=== PATIENT | male | born 1945 | race American Indian/Alaskan Native ===

== ENCOUNTER 2018-05-07 19:04 | Observation (INO) | payer OTHER ==
--- NOTE | 2018-05-07 19:45 | EDM.PDOC ---
ED HPI GENERAL MEDICAL PROBLEM - General Chief Complaint: General Stated Complaint: HIGH POTASSIUM? SENT FROM [facility] Time Seen by Provider: 05/07/18 19:35 Source of Information: Reports: Patient, Old Records, Provider History Limitations: Reports: No Limitations - History of Present Illness INITIAL COMMENTS - FREE TEXT/NARRATIVE: 72 yo male here on request from his provider to be evaluated for an abnormal potassium, 6.2, on a routine lab draw earlier today. He is asymptomatic and does not recall having an issue with this in the past. 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 Goes to the [facility]. Onset: Today Onset Date: 05/07/18 Duration: Hour(s):, Other (uncertain) Location: Reports: Generalized Quality: Reports: Other (no pain) Severity: Moderate Improves with: Reports: None Worsens with: Reports: None Context: Reports: Other (See HPI) Associated Symptoms: Reports: No Other Symptoms Treatments COMBINER: Reports: Other (see below) Other Treatments COMBINER: high potassium - Related Data Allergies Allergy/AdvReac Type Severity Reaction Status Date / Time No Known Allergies Allergy Verified 05/07/18 19:37 Home Meds: Home Meds Aspirin [Adult Low Dose Aspirin EC] 81 mg PO DAILY 03/17/13 [History] Insulin Detemir [Levemir] 25 unit SUBCUT BEDTIME 03/17/13 [History] Multivitamin [Multi-Vitamin Daily] 1 each PO DAILY 03/17/13 [History] glipiZIDE [Glucotrol XL] 10 mg PO BID 03/17/13 [History] Ascorbic Acid [Acerola C] 250 mg PO DAILY 05/07/18 [History] Calcitriol 0.25 mcg PO DAILY 05/07/18 [History] Cholecalciferol (Vitamin D3) [Vitamin D3] 2,000 unit PO DAILY 05/07/18 [History] Ferrous Gluconate 972 mg PO DAILY 05/07/18 [History] Lisinopril 5 mg PO BID 05/07/18 [History] Magnesium Oxide [Magnesium] 400 mg PO BID 05/07/18 [History] amLODIPine Besylate [Amlodipine Besylate] 10 mg PO DAILY 05/07/18 [History] hydroCHLOROthiazide [Hydrochlorothiazide] 25 mg PO DAILY 05/07/18 [History] ED ROS GENERAL - Review of Systems Review Of Systems: See Below Constitutional: Reports: No Symptoms HEENT: Reports: No Symptoms Respiratory: Reports: No Symptoms Cardiovascular: Reports: No Symptoms Endocrine: Reports: No Symptoms GI/Abdominal: Reports: No Symptoms : Reports: No Symptoms Musculoskeletal: Reports: No Symptoms Skin: Reports: No Symptoms Neurological: Reports: No Symptoms ED EXAM, GENERAL - Physical Exam Exam: See Below Exam Limited By: No Limitations General Appearance: Alert, WD/WN, No Apparent Distress Eye Exam: Bilateral Eye: Normal Inspection, PERRL Ears: Normal External Exam, Normal Canal, Hearing Grossly Normal Ear Exam: Bilateral Ear: Auricle Normal, Canal Normal Nose: Normal Inspection, No Blood Throat/Mouth: Normal Inspection, Normal Lips, Normal Oropharynx, Normal Voice, No Airway Compromise Head: Atraumatic, Normocephalic Neck: Normal Inspection Respiratory/Chest: No Respiratory Distress, Lungs Clear, Normal Breath Sounds, No Accessory Muscle Use Cardiovascular: Regular Rate, Rhythm, No Edema GI/Abdominal: Normal Bowel Sounds, Soft, Non-Tender, No Distention Back Exam: Normal Inspection. No: CVA Tenderness (R), CVA Tenderness (L) Extremities: Normal Inspection, Normal Range of Motion, Non-Tender, No Pedal Edema Neurological: Alert, Oriented, CN II-XII Intact, Normal Cognition, No Motor/ Sensory Deficits Psychiatric: Normal Affect, Normal Mood Skin Exam: Warm, Dry, Intact, Normal Color, No Rash EKG INTERPRETATION EKG Date: 05/07/18 Time: 19:40 Rhythm: NSR Rate (Beats/Min): 70 [place]: Normal P-Wave: Present QRS: Normal ST-T: Normal QT: Normal Comparison: NA - No Prior EKG EKG Interpretation Comments: SD interval prolonged. Course - Vital Signs Text/Narrative:: Hospitalist Ruthann mendoza, at 2203h. Last Recorded V/S: Last Vital Signs Temp 36.4 C 05/07/18 19:51 Pulse 63 05/07/18 20:05 Resp 12 05/07/18 20:05 BP 155/69 H 05/07/18 20:05 Pulse Ox 95 05/07/18 20:05 - Orders/Labs/Meds Orders: Active Orders 24 hr Category Date Time Status EKG Documentation Completion [RC] ASDIRECTED Care 05/07/18 19:39 Active EKG 12 Lead [EK] Routine Ther 05/07/18 19:39 Ordered Labs: Laboratory Tests 05/07/18 05/07/18 Range/Units 19:10 21:45 Potassium 6.1 H* 5.9 H (3.6-5.2) mmol/L Meds: Medications Discontinued Medications Generic Name Dose Route Start Last Admin Trade Name Braxton PRN Reason Stop Dose Admin Sodium Chloride 500 mls @ 1,000 mls/hr 05/07/18 19:52 05/07/18 20:49 Normal Saline IV 05/07/18 20:21 1,000 mls/hr .BOLUS ONE Administration Sodium Chloride 500 mls @ 1,000 mls/hr 05/07/18 20:45 05/07/18 21:18 Normal Saline IV 05/07/18 21:14 1,000 mls/hr .BOLUS ONE Administration Sodium Polystyrene Sulfonate 30 gm 05/07/18 19:52 05/07/18 20:51 Kayexalate PO 05/07/18 19:53 30 gm ONETIME ONE Administration Departure - Departure Time of Disposition: 22:20 Disposition: Refer to Observation Condition: Fair Clinical Impression: Hyperkalemia, Chronic renal failure, stage 4 (severe) - Discharge Information *PRESCRIPTION DRUG MONITORING PROGRAM REVIEWED*: No *COPY OF PRESCRIPTION DRUG MONITORING REPORT IN PATIENT PAULINE: No Referrals: PCP,None [Primary Care Provider] - Forms: ED Department Discharge - My Orders Last 24 Hours: My Active Orders 05/07/18 19:39 EKG Documentation Completion [RC] ASDIRECTED EKG 12 Lead [EK] Routine - Assessment/Plan Last 24 Hours: My Active Orders 05/07/18 19:39 EKG Documentation Completion [RC] ASDIRECTED EKG 12 Lead [EK] Routine
[2018-05-07] MEDS ORDERED: Sodium Chloride 0.9% 500 ML IV ONE ×2 (19:52→20:45)
[2018-05-07] MEDS ORDERED: Sodium Polystyrene Sulfonate 15 GM/60 ML Susp 60 ML Bot PO ONE (19:52)
--- NOTE | 2018-05-07 23:36 | PCM.HP ---
H&P History of Present Illness - General Date of Service: 05/07/18 Admit Problem/Dx: Admission Diagnosis/Problem Admission Diagnosis/Problem Hyperkalemia Source of Information: Patient History Limitations: Reports: No Limitations - History of Present Illness Initial Comments - Free Text/Narative: 72 yo male here on request from his provider to be evaluated for an abnormal potassium, 6.2, on a routine lab draw earlier today. He is asymptomatic and does not recall having an issue with this in the past. 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 Goes to the [facility]. Onset: Today Onset of Symptoms: Reports: Today (seen in clinic today for routine primary care visit, labs noted to have high potassium, advise to come to ER for further evaluation) Location: Reports: Generalized Improves with: Reports: None Worsens with: Reports: None Associated Symptoms: Reports: No Other Symptoms (deneis chest pain, shortness of breath, fever, chills, nausea, vomiting or diarrhea) - Related Data Allergies/Adverse Reactions: Allergies Allergy/AdvReac Type Severity Reaction Status Date / Time No Known Allergies Allergy Verified 05/07/18 19:37 Home Medications: Home Meds Aspirin [Adult Low Dose Aspirin EC] 81 mg PO DAILY 03/17/13 [History] Insulin Detemir [Levemir] 25 unit SUBCUT BEDTIME 03/17/13 [History] Multivitamin [Multi-Vitamin Daily] 1 each PO DAILY 03/17/13 [History] glipiZIDE [Glucotrol XL] 10 mg PO BID 03/17/13 [History] Ascorbic Acid [Acerola C] 250 mg PO DAILY 05/07/18 [History] Calcitriol 0.25 mcg PO DAILY 05/07/18 [History] Cholecalciferol (Vitamin D3) [Vitamin D3] 2,000 unit PO DAILY 05/07/18 [History] Ferrous Gluconate 972 mg PO DAILY 05/07/18 [History] Lisinopril 5 mg PO BID 05/07/18 [History] Magnesium Oxide [Magnesium] 400 mg PO BID 05/07/18 [History] amLODIPine Besylate [Amlodipine Besylate] 10 mg PO DAILY 05/07/18 [History] hydroCHLOROthiazide [Hydrochlorothiazide] 25 mg PO DAILY 05/07/18 [History] Past Medical History HEENT History: Reports: Other (See Below) Other HEENT History: retinal atrophic hole. postertior vitreous detachment Cardiovascular History: Reports: High Cholesterol, Hypertension Genitourinary History: Reports: Other (See Below) Other Genitourinary History: Chronic kidney disease stage 4 due to type 2 DM. erectile dysfunction Musculoskeletal History: Reports: Osteoarthritis, Other (See Below) Other Musculoskeletal History: lumbar radiculopathy Neurological History: Reports: Head Trauma Endocrine/Metabolic History: Reports: Diabetes, Type II Dermatologic History: Reports: Other (See Below) Other Dermatologic History: diabetic foot ulcer - Infectious Disease History Infectious Disease History: Reports: Chicken Pox Social & Family History - Family History Family Medical History: Unobtainable - Tobacco Use Smoking Status *Q: Never Smoker Second Hand Smoke Exposure: No - Caffeine Use Caffeine Use: Reports: Coffee - Recreational Drug Use Recreational Drug Use: No - Living Situation & Occupation Occupation: Retired (lives in [place], [place] with Melissa, retired 6 years ago from [employer].) H&P Review of Systems - Review of Systems: Review Of Systems: See Below General: Reports: No Symptoms, Other (reports has diabetes but didnt take care of it, does not follow any special diet. reports no concerns. feeling his usually self.) HEENT: Reports: No Symptoms Pulmonary: Reports: No Symptoms Cardiovascular: Reports: No Symptoms Gastrointestinal: Reports: No Symptoms Genitourinary: Reports: No Symptoms Musculoskeletal: Reports: No Symptoms Skin: Reports: No Symptoms Psychiatric: Reports: No Symptoms Neurological: Reports: No Symptoms Hematologic/Lymphatic: Reports: No Symptoms Immunologic: Reports: No Symptoms Exam - Exam Exam: See Below - Vital Signs Vital Signs: Last Vital Signs Temp 36.4 C 05/07/18 23:05 Pulse 66 05/07/18 23:05 Resp 12 05/07/18 23:05 BP 161/75 H 05/07/18 23:05 Pulse Ox 95 05/07/18 23:05 Weight: 86.8 kg - Exam General: Alert, Oriented, 4 HEENT: PERRLA, Hearing Intact, Mucosa Moist & [place], Nares Patent, Normal Nasal Septum, Posterior Pharynx Clear, Conjunctiva Clear, EOMI, EACs Clear, TMs Clear Neck: Supple, Trachea Midline, 2 Lungs: Clear to Auscultation, Normal Respiratory Effort Cardiovascular: Regular Rate, Regular Rhythm GI/Abdominal Exam: Normal Bowel Sounds, Soft, Non-Tender, No Organomegaly, No Distention, No Abnormal Bruit, No Mass, Pelvis Stable (Male) Exam: Deferred Rectal (Males) Exam: Deferred Back Exam: Normal Inspection, Full Range of Motion Extremities: Normal Inspection, Normal Range of Motion, Non-Tender, No Pedal Edema, Normal Capillary Refill Skin: Warm, Dry, Intact Neurological: Reflexes Equal Bilateral, Strength Equal Bilateral, Normal Speech , Normal Tone Neuro Extensive - Mental Status: Alert, Oriented x3, Normal Mood/Affect, Normal Cognition Neuro Extensive - Motor, Sensory, Reflexes: CN II-XII Intact, Normal Gait, Normal Reflexes Psychiatric: Alert, Normal Affect, Normal Mood - Patient Data Lab Results Last 24 hrs: Laboratory Results - last 24 hr 05/07/18 05/07/18 05/07/18 Range/Units 19:10 21:45 22:49 WBC 6.4 (4.5-11.0) K/uL RBC 2.95 L (4.30-5.90) M/uL Hgb 8.0 L (12.0-15.0) g/dL Hct 25.8 L (40.0-54.0) % MCV 88 (80-98) fL MCH 27 (27-31) pg MCHC 31 L (32-36) % Plt Count 330 (150-400) K/uL Neut % (Auto) 59 (36-66) % Lymph % (Auto) 24 (24-44) % Leon % (Auto) 7 H (2-6) % Eos % (Auto) 9 H (2-4) % Baso % (Auto) 1 (0-1) % Sodium (140-148) mmol/L Potassium 6.1 H* 5.9 H (3.6-5.2) mmol/L Chloride (100-108) mmol/L Carbon Dioxide (21-32) mmol/L Anion Gap (5.0-14.0) mmol/L BUN (7-18) mg/dL Creatinine (0.8-1.3) mg/dL Est Cr Clr Drug Dosing mL/min Estimated GFR (MDRD) (>60) Glucose (74-106) mg/dL Calcium (8.5-10.1) mg/dL Magnesium (1.8-2.4) mg/dL Total Bilirubin (0.2-1.0) mg/dL AST (15-37) U/L ALT (12-78) U/L Alkaline Phosphatase (46-116) U/L Total Protein (6.4-8.2) g/dL Albumin (3.4-5.0) g/dL Globulin (2.3-3.5) g/dL Albumin/Globulin Ratio (1.2-2.2) Amylase (25-115) U/L Lipase (73-393) U/L Urine Color Urine Appearance Urine pH (4.5-8.0) Ur Specific [place] (1.008-1.030) Urine Protein (NEGATIVE) mg/dL Urine Glucose (UA) (NEGATIVE) mg/dL Urine Ketones (NEGATIVE) mg/dL Urine Occult Blood (NEGATIVE) Urine Nitrite (NEGAITVE) Urine Bilirubin (NEGATIVE) Urine Urobilinogen (NORMAL) mg/dL Ur Leukocyte Esterase (NEGATIVE) Urine RBC (0-5) Urine WBC (0-5) Ur Epithelial Cells Amorphous Sediment Urine Bacteria Urine Mucus 05/07/18 05/07/18 05/07/18 Range/Units 22:49 22:49 22:49 WBC (4.5-11.0) K/uL RBC (4.30-5.90) M/uL Hgb (12.0-15.0) g/dL Hct (40.0-54.0) % MCV (80-98) fL MCH (27-31) pg MCHC (32-36) % Plt Count (150-400) K/uL Neut % (Auto) (36-66) % Lymph % (Auto) (24-44) % Leon % (Auto) (2-6) % Eos % (Auto) (2-4) % Baso % (Auto) (0-1) % Sodium 143 (140-148) mmol/L Potassium 5.9 H (3.6-5.2) mmol/L Chloride 113 H (100-108) mmol/L Carbon Dioxide 21 (21-32) mmol/L Anion Gap 14.9 H (5.0-14.0) mmol/L BUN 49 H (7-18) mg/dL Creatinine 3.1 H (0.8-1.3) mg/dL Est Cr Clr Drug Dosing 25.04 mL/min Estimated GFR (MDRD) 20 L (>60) Glucose 155 H (74-106) mg/dL Calcium 7.8 L (8.5-10.1) mg/dL Magnesium (1.8-2.4) mg/dL Total Bilirubin 0.1 L (0.2-1.0) mg/dL AST 22 (15-37) U/L ALT 27 (12-78) U/L Alkaline Phosphatase 94 (46-116) U/L Total Protein 6.2 L (6.4-8.2) g/dL Albumin 2.3 L (3.4-5.0) g/dL Globulin 3.9 H (2.3-3.5) g/dL Albumin/Globulin Ratio 0.6 L (1.2-2.2) Amylase 62 (25-115) U/L Lipase 164 (73-393) U/L Urine Color Yellow Urine Appearance Slightly cloudy Urine pH 6.0 (4.5-8.0) Ur Specific [place] 1.015 (1.008-1.030) Urine Protein 500 H (NEGATIVE) mg/dL Urine Glucose (UA) 250 H (NEGATIVE) mg/dL Urine Ketones Negative (NEGATIVE) mg/dL Urine Occult Blood Moderate (NEGATIVE) Urine Nitrite Negative (NEGAITVE) Urine Bilirubin Negative (NEGATIVE) Urine Urobilinogen Normal (NORMAL) mg/dL Ur Leukocyte Esterase Negative (NEGATIVE) Urine RBC 5-10 H (0-5) Urine WBC Not seen (0-5) Ur Epithelial Cells Few Amorphous Sediment Not seen Urine Bacteria Not seen Urine Mucus Not seen 05/07/18 Range/Units 22:50 WBC (4.5-11.0) K/uL RBC (4.30-5.90) M/uL Hgb (12.0-15.0) g/dL Hct (40.0-54.0) % MCV (80-98) fL MCH (27-31) pg MCHC (32-36) % Plt Count (150-400) K/uL Neut % (Auto) (36-66) % Lymph % (Auto) (24-44) % Leon % (Auto) (2-6) % Eos % (Auto) (2-4) % Baso % (Auto) (0-1) % Sodium (140-148) mmol/L Potassium (3.6-5.2) mmol/L Chloride (100-108) mmol/L Carbon Dioxide (21-32) mmol/L Anion Gap (5.0-14.0) mmol/L BUN (7-18) mg/dL Creatinine (0.8-1.3) mg/dL Est Cr Clr Drug Dosing mL/min Estimated GFR (MDRD) (>60) Glucose (74-106) mg/dL Calcium (8.5-10.1) mg/dL Magnesium 1.5 L (1.8-2.4) mg/dL Total Bilirubin (0.2-1.0) mg/dL AST (15-37) U/L ALT (12-78) U/L Alkaline Phosphatase (46-116) U/L Total Protein (6.4-8.2) g/dL Albumin (3.4-5.0) g/dL Globulin (2.3-3.5) g/dL Albumin/Globulin Ratio (1.2-2.2) Amylase (25-115) U/L Lipase (73-393) U/L Urine Color Urine Appearance Urine pH (4.5-8.0) Ur Specific [place] (1.008-1.030) Urine Protein (NEGATIVE) mg/dL Urine Glucose (UA) (NEGATIVE) mg/dL Urine Ketones (NEGATIVE) mg/dL Urine Occult Blood (NEGATIVE) Urine Nitrite (NEGAITVE) Urine Bilirubin (NEGATIVE) Urine Urobilinogen (NORMAL) mg/dL Ur Leukocyte Esterase (NEGATIVE) Urine RBC (0-5) Urine WBC (0-5) Ur Epithelial Cells Amorphous Sediment Urine Bacteria Urine Mucus Result Diagrams: 05/08/18 05:00 05/08/18 05:00 - Problem List (1) Hyperkalemia SNOMED Code(s): 48461590 ICD Code: E87.5 - HYPERKALEMIA Status: Acute Priority: High Current Visit: Yes (2) Chronic renal failure, stage 4 (severe) SNOMED Code(s): 31099485, 472005135 ICD Code: N18.4 - CHRONIC KIDNEY DISEASE, STAGE 4 (SEVERE) Status: Acute Priority: High Current Visit: Yes (3) Hypertension SNOMED Code(s): 46884033 ICD Code: I10 - ESSENTIAL (PRIMARY) HYPERTENSION Status: Acute Priority: High Current Visit: Yes Qualifiers: Hypertension type: secondary to other renal disorders Qualified Code(s): I15.1 - Hypertension secondary to other renal disorders; N28.89 - Other specified disorders of kidney and ureter (4) Diabetes type 2, uncontrolled SNOMED Code(s): 05294922, 620059239 ICD Code: E11.65 - TYPE 2 DIABETES MELLITUS WITH HYPERGLYCEMIA Status: Chronic Priority: High Current Visit: No Qualifiers: Coma presence: without coma Problem List Initiated/Reviewed/Updated: Yes Orders Last 24hrs: Active Orders 24 hr Category Date Time Status Patient Status Manage Transfer [TRANSFER] Routine ADT 05/07/18 23:04 Ordered Cardiac Monitoring [RC] .As Directed Care 05/07/18 22:49 Active EKG Documentation Completion [RC] ASDIRECTED Care 05/07/18 19:39 Active Resuscitation Status Routine Resus Stat 05/07/18 23:10 Ordered EKG 12 Lead [EK] Routine Ther 05/07/18 19:39 Ordered Assessment/Plan Comment:: ASSESSMENT / PLAN: chief complaint: high potassium 72 yo male here on request from his provider to be evaluated for an abnormal potassium, 6.2, on a routine lab draw earlier today. He is asymptomatic and does not recall having an issue with this in the past. 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 Goes to the [facility]. plan: admit to OBS for further care and treatment. Hyperkalemia -telemetry -give additional Kayexalate 30 gm. -IV fluids NS at 125ml/hr -repeat labs in am CBC,BMP Hypertension -continue blood pressure medication Chronic renal failure, baseline creatinine 3.3, chronic anemia -I and O -Iron infusion due this week -monitor for any sign or symptom of excess fluid. -advise to notify staff of any shortness of breath -labs CBC,BMP in am Diabetes Type 2, uncontrolled -Glucotrol XL 10 mg po bid -Insulin Levemir 25 units at bedtime -Insulin low dose sliding scale coverage -monitor blood glucose 4 times a day Maintenance issues -Orders home meds: on hold -Nutrition: consistent carb diet -Woodruff catheter not indicated at this time -DVT:Xarelto -GI Prophalaxis; Protonix 40mg daily CODE STATUS: Full Admission status: Admit to Observation -I expect this patient to stay less than 24 hours, not to exceed 96 hours for evaluation and management of this problem. Disposition: home with Primary care provider: Cyndi Nathan [facility] Hospitalist: Dr. Nathan
[2018-05-08] MEDS ORDERED: Lisinopril 5 MG Tab PO SCH (00:03)
[2018-05-08] MEDS ORDERED: Insulin Glargine,Human Rec. Analog 100 Units/ML 3 ML Pen SUBCUT SCH ×2 (00:03)
[2018-05-08] MEDS ORDERED: Docusate Sodium 100 MG Cap PO PRN (00:03)
[2018-05-08] MEDS ORDERED: Morphine 2 MG/ML Syringe IVPUSH PRN (00:03)
[2018-05-08] MEDS ORDERED: oxyCODONE 5 MG Tab PO PRN (00:03)
[2018-05-08] MEDS ORDERED: LORazepam 2 MG/ML SDV IV PRN (00:03)
[2018-05-08] MEDS ORDERED: Acetaminophen 325 MG Tab PO PRN (00:03)
[2018-05-08] MEDS ORDERED: Ondansetron 4 MG Tab.DIS PO PRN (00:03)
[2018-05-08] MEDS ORDERED: Sodium Polystyrene Sulfonate 15 GM/60 ML Susp 60 ML Bot PO ONE ×3 (00:03→14:00)
[2018-05-08] MEDS ORDERED: Albuterol 0.083% 2.5 MG/3 ML Neb Soln NEB PRN (00:03)
[2018-05-08] MEDS: Sodium Chloride 0.9% 1,000 ML IV SCH ×3 (01:13→12:42)
[2018-05-08] MEDS: Insulin Lispro 100 Unit/ML 3 ML KwikPen SUBCUT SCH ×2 (08:58→14:18)
[2018-05-08] MEDS ORDERED: CALCITRIOL 0.25 MCG PO SCH (09:00)
[2018-05-08] MEDS ORDERED: FERROUS GLUCONATE PO SCH (09:00)
[2018-05-08] MEDS ORDERED: Magnesium Oxide 400 MG Tab PO SCH (09:00)
[2018-05-08] MEDS ORDERED: amLODIPine 10 MG Tab PO SCH (09:00)
[2018-05-08] MEDS ORDERED: glipiZIDE 5 MG Tab.ER PO SCH (09:00)
[2018-05-08] MEDS ORDERED: Hydrochlorothiazide 25 MG Tab PO SCH (09:00)
[2018-05-08] MEDS ORDERED: Sodium Chloride 0.9% 1,000 ML IV SCH (12:45)
--- NOTE | 2018-05-08 14:44 | PCM.DCSUM1 ---
Discharge Summary - Hospital Course Brief History: 72-year-old male with history of adult-onset diabetes mellitus, stage IV kidney disease and secondary hypertension who was sent to the emergency room for management of hyperkalemia noted on routine labs. He was admitted for management of hyperkalemia. Diagnosis: Stroke: No - Discharge Data Discharge Date: 05/08/18 Discharge Disposition: Home, Self-Care 01 Condition: Fair - Discharge Diagnosis/Problem(s) (1) Hyperkalemia SNOMED Code(s): 63447478 ICD Code: E87.5 - HYPERKALEMIA Status: Acute Priority: High Current Visit: Yes (2) Chronic renal failure, stage 4 (severe) SNOMED Code(s): 45545981, 128580579 ICD Code: N18.4 - CHRONIC KIDNEY DISEASE, STAGE 4 (SEVERE) Status: Chronic Priority: High Current Visit: Yes (3) Hypertension SNOMED Code(s): 06462521 ICD Code: I10 - ESSENTIAL (PRIMARY) HYPERTENSION Status: Chronic Priority : High Current Visit: Yes Qualifiers: Hypertension type: secondary to other renal disorders Qualified Code(s): I15.1 - Hypertension secondary to other renal disorders; N28.89 - Other specified disorders of kidney and ureter (4) Diabetes type 2, uncontrolled SNOMED Code(s): 43866374, 470832454 ICD Code: E11.65 - TYPE 2 DIABETES MELLITUS WITH HYPERGLYCEMIA Status: Chronic Priority: High Current Visit: No Qualifiers: Coma presence: without coma - Patient Summary/Data Hospital Course: Ayaan presented to the emergency room at the urging of his primary care provider after routine lab work revealed a potassium of 6.2. Recheck of the potassium in the emergency room revealed a level of 6.1. He was given 30 g of Kayexalate as well as IV fluids and admitted to the hospital for cardiac monitoring and repeat laboratory testing. 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 His potassium decreased to 5.9 and then to 5.7 the morning after admission. He was feeling well. His chronic kidney disease remained stable with a GFR of around 24. I did recheck his potassium around noon the morning after admission. Unfortunately this level had risen up to 6.4. He received 45 g of Kayexalate as well as IV fluid bolus of 1 L. The patient was not interested in staying in the hospital for additional cardiac monitoring or follow-up laboratory testing. He reported that he felt well and was interested in going home. I encouraged him to stay because of the rise in his potassium despite treatments provided in the emergency room. He was adamant that he go home but he was willing to come back tomorrow for repeat laboratory testing. I suspect that his hyperkalemia was related to the use of lisinopril in the setting of chronic kidney disease. I recommended that he discontinue his lisinopril. He would benefit from early follow-up and this has been scheduled. He is also interested in home care to help monitor medications and vital signs. Also noted during the hospital stay was a low blood sugar of 59 the morning after admission. He is on twice daily glipizide with the long-acting formulation. With his hypoglycemia and chronic kidney disease I encouraged him to decrease this dosing to just once daily. He has follow-up scheduled for early next week and will be returning tomorrow for additional laboratory testing. - Patient Instructions Diet: Diabetic Diet Activity: As Tolerated Driving: May Drive Today Showering/Bathing: May Shower Notify Provider of: Fever, Increased Pain, Nausea and/or Vomiting Other/Special Instructions: 1. You were in the hospital stay for management of hyperkalemia (high potassium). I suspect the high potassium level was a result of your blood pressure medication lisinopril. I would recommend that you stop taking this medication with the hopes it will lower your potassium level to a safe range. Please return to the hospital and register at the emergency room desk for lab only tomorrow morning. I will talk to you about the results as soon as they are available. 2. During the hospital stay we noticed an episode of hypoglycemia (low blood sugar). I would strongly recommend that you decrease your dose of glipizide from twice daily down to just once daily in the morning. 3. Follow up with your provider [facility] as scheduled on May [facility]. 4. I have placed a referral to home health care to help ease her transition home. They will provide nursing services to help monitor medications and recheck your potassium level early next week (BMP on Friday or Friday). 5. Seek medical attention if you develop fever greater than 101, you have chest pain/tightness in your chest or if you have significant dizziness/ lightheadedness. - Discharge Plan *PRESCRIPTION DRUG MONITORING PROGRAM REVIEWED*: No *COPY OF PRESCRIPTION DRUG MONITORING REPORT IN PATIENT PAULINE: No Prescriptions/Med Rec: glipiZIDE [Glucotrol XL] 10 mg PO DAILY #30 tab.er Home Medications: Home Meds Aspirin [Adult Low Dose Aspirin EC] 81 mg PO DAILY 03/17/13 [History] Insulin Detemir [Levemir] 25 unit SUBCUT BEDTIME 03/17/13 [History] Multivitamin [Multi-Vitamin Daily] 1 each PO DAILY 03/17/13 [History] Ascorbic Acid [Acerola C] 250 mg PO DAILY 05/07/18 [History] Calcitriol 0.25 mcg PO DAILY 05/07/18 [History] Cholecalciferol (Vitamin D3) [Vitamin D3] 2,000 unit PO DAILY 05/07/18 [History] Ferrous Gluconate 972 mg PO DAILY 05/07/18 [History] Magnesium Oxide [Magnesium] 400 mg PO BID 05/07/18 [History] amLODIPine Besylate [Amlodipine Besylate] 10 mg PO DAILY 05/07/18 [History] hydroCHLOROthiazide [Hydrochlorothiazide] 25 mg PO DAILY 05/07/18 [History] glipiZIDE [Glucotrol XL] 10 mg PO DAILY #30 tab.er 05/08/18 [Rx] Oxygen Therapy Mode: Room Air Patient Handouts: Hyperkalemia, [id number] Referrals: Yeni Brandt MD [Ordering Only Provider] - 05/26/18 2:00 pm (Please arrive 15 minutes early to register for your appointment.) - Discharge Summary/Plan Comment DC Time >30 min.: Yes (45 - setting up home care and follow-up laboratory testing) - Patient Data Vitals - Most Recent: Last Vital Signs Temp 36.5 C 05/08/18 12:36 Pulse 74 05/08/18 12:36 Resp 18 05/08/18 12:36 BP 162/59 H 05/08/18 12:36 Pulse Ox 99 05/08/18 12:36 Weight - Most Recent: 86.8 kg I&O - Last 24 hours: Intake & Output 05/07/18 05/08/18 05/08/18 22:59 06:59 14:59 Intake Total 796 Output Total 300 325 Balance -300 471 Lab Results - Last 24 hrs: Laboratory Results - last 24 hr 05/07/18 05/07/18 05/07/18 Range/Units 19:10 21:45 22:49 WBC 6.4 (4.5-11.0) K/uL RBC 2.95 L (4.30-5.90) M/uL Hgb 8.0 L (12.0-15.0) g/dL Hct 25.8 L (40.0-54.0) % MCV 88 (80-98) fL MCH 27 (27-31) pg MCHC 31 L (32-36) % Plt Count 330 (150-400) K/uL Neut % (Auto) 59 (36-66) % Lymph % (Auto) 24 (24-44) % [place] % (Auto) 7 H (2-6) % Eos % (Auto) 9 H (2-4) % Baso % (Auto) 1 (0-1) % Sodium (140-148) mmol/L Potassium 6.1 H* 5.9 H (3.6-5.2) mmol/L Chloride (100-108) mmol/L Carbon Dioxide (21-32) mmol/L Anion Gap (5.0-14.0) mmol/L BUN (7-18) mg/dL Creatinine (0.8-1.3) mg/dL Est Cr Clr Drug Dosing mL/min Estimated GFR (MDRD) (>60) Glucose (74-106) mg/dL Calcium (8.5-10.1) mg/dL Magnesium (1.8-2.4) mg/dL Total Bilirubin (0.2-1.0) mg/dL AST (15-37) U/L ALT (12-78) U/L Alkaline Phosphatase (46-116) U/L Total Protein (6.4-8.2) g/dL Albumin (3.4-5.0) g/dL Globulin (2.3-3.5) g/dL Albumin/Globulin Ratio (1.2-2.2) Amylase (25-115) U/L Lipase (73-393) U/L Urine Color Urine Appearance Urine pH (4.5-8.0) Ur Specific [place] (1.008-1.030) Urine Protein (NEGATIVE) mg/dL Urine Glucose (UA) (NEGATIVE) mg/dL Urine Ketones (NEGATIVE) mg/dL Urine Occult Blood (NEGATIVE) Urine Nitrite (NEGAITVE) Urine Bilirubin (NEGATIVE) Urine Urobilinogen (NORMAL) mg/dL Ur Leukocyte Esterase (NEGATIVE) Urine RBC (0-5) Urine WBC (0-5) Ur Epithelial Cells Amorphous Sediment Urine Bacteria Urine Mucus Blood Type Gel Antibody Screen Crossmatch 05/07/18 05/07/18 05/07/18 Range/Units 22:49 22:49 22:49 WBC (4.5-11.0) K/uL RBC (4.30-5.90) M/uL Hgb (12.0-15.0) g/dL Hct (40.0-54.0) % MCV (80-98) fL MCH (27-31) pg MCHC (32-36) % Plt Count (150-400) K/uL Neut % (Auto) (36-66) % Lymph % (Auto) (24-44) % [place] % (Auto) (2-6) % Eos % (Auto) (2-4) % Baso % (Auto) (0-1) % Sodium 143 (140-148) mmol/L Potassium 5.9 H (3.6-5.2) mmol/L Chloride 113 H (100-108) mmol/L Carbon Dioxide 21 (21-32) mmol/L Anion Gap 14.9 H (5.0-14.0) mmol/L BUN 49 H (7-18) mg/dL Creatinine 3.1 H (0.8-1.3) mg/dL Est Cr Clr Drug Dosing 25.04 mL/min Estimated GFR (MDRD) 20 L (>60) Glucose 155 H (74-106) mg/dL Calcium 7.8 L (8.5-10.1) mg/dL Magnesium (1.8-2.4) mg/dL Total Bilirubin 0.1 L (0.2-1.0) mg/dL AST 22 (15-37) U/L ALT 27 (12-78) U/L Alkaline Phosphatase 94 (46-116) U/L Total Protein 6.2 L (6.4-8.2) g/dL Albumin 2.3 L (3.4-5.0) g/dL Globulin 3.9 H (2.3-3.5) g/dL Albumin/Globulin Ratio 0.6 L (1.2-2.2) Amylase 62 (25-115) U/L Lipase 164 (73-393) U/L Urine Color Yellow Urine Appearance Slightly cloudy Urine pH 6.0 (4.5-8.0) Ur Specific [place] 1.015 (1.008-1.030) Urine Protein 500 H (NEGATIVE) mg/dL Urine Glucose (UA) 250 H (NEGATIVE) mg/dL Urine Ketones Negative (NEGATIVE) mg/dL Urine Occult Blood Moderate (NEGATIVE) Urine Nitrite Negative (NEGAITVE) Urine Bilirubin Negative (NEGATIVE) Urine Urobilinogen Normal (NORMAL) mg/dL Ur Leukocyte Esterase Negative (NEGATIVE) Urine RBC 5-10 H (0-5) Urine WBC Not seen (0-5) Ur Epithelial Cells Few Amorphous Sediment Not seen Urine Bacteria Not seen Urine Mucus Not seen Blood Type Gel Antibody Screen Crossmatch 05/07/18 05/08/18 05/08/18 Range/Units 22:50 05:00 05:00 WBC 5.3 (4.5-11.0) K/uL RBC 2.64 L (4.30-5.90) M/uL Hgb 7.1 L (12.0-15.0) g/dL Hct 23.3 L (40.0-54.0) % MCV 88 (80-98) fL MCH 27 (27-31) pg MCHC 31 L (32-36) % Plt Count 283 (150-400) K/uL Neut % (Auto) 53 (36-66) % Lymph % (Auto) 27 (24-44) % [place] % (Auto) 8 H (2-6) % Eos % (Auto) 12 H (2-4) % Baso % (Auto) 1 (0-1) % Sodium 144 (140-148) mmol/L Potassium 5.7 H (3.6-5.2) mmol/L Chloride 115 H (100-108) mmol/L Carbon Dioxide 21 (21-32) mmol/L Anion Gap 13.7 (5.0-14.0) mmol/L BUN 48 H (7-18) mg/dL Creatinine 3.0 H (0.8-1.3) mg/dL Est Cr Clr Drug Dosing 25.88 mL/min Estimated GFR (MDRD) 21 L (>60) Glucose 102 (74-106) mg/dL Calcium 8.2 L (8.5-10.1) mg/dL Magnesium 1.5 L (1.8-2.4) mg/dL Total Bilirubin (0.2-1.0) mg/dL AST (15-37) U/L ALT (12-78) U/L Alkaline Phosphatase (46-116) U/L Total Protein (6.4-8.2) g/dL Albumin (3.4-5.0) g/dL Globulin (2.3-3.5) g/dL Albumin/Globulin Ratio (1.2-2.2) Amylase (25-115) U/L Lipase (73-393) U/L Urine Color Urine Appearance Urine pH (4.5-8.0) Ur Specific [place] (1.008-1.030) Urine Protein (NEGATIVE) mg/dL Urine Glucose (UA) (NEGATIVE) mg/dL Urine Ketones (NEGATIVE) mg/dL Urine Occult Blood (NEGATIVE) Urine Nitrite (NEGAITVE) Urine Bilirubin (NEGATIVE) Urine Urobilinogen (NORMAL) mg/dL Ur Leukocyte Esterase (NEGATIVE) Urine RBC (0-5) Urine WBC (0-5) Ur Epithelial Cells Amorphous Sediment Urine Bacteria Urine Mucus Blood Type Gel Antibody Screen Crossmatch 05/08/18 05/08/18 Range/Units 07:47 12:00 WBC (4.5-11.0) K/uL RBC (4.30-5.90) M/uL Hgb (12.0-15.0) g/dL Hct (40.0-54.0) % MCV (80-98) fL MCH (27-31) pg MCHC (32-36) % Plt Count (150-400) K/uL Neut % (Auto) (36-66) % Lymph % (Auto) (24-44) % [place] % (Auto) (2-6) % Eos % (Auto) (2-4) % Baso % (Auto) (0-1) % Sodium (140-148) mmol/L Potassium 6.4 H* (3.6-5.2) mmol/L Chloride (100-108) mmol/L Carbon Dioxide (21-32) mmol/L Anion Gap (5.0-14.0) mmol/L BUN (7-18) mg/dL Creatinine (0.8-1.3) mg/dL Est Cr Clr Drug Dosing mL/min Estimated GFR (MDRD) (>60) Glucose (74-106) mg/dL Calcium (8.5-10.1) mg/dL Magnesium (1.8-2.4) mg/dL Total Bilirubin (0.2-1.0) mg/dL AST (15-37) U/L ALT (12-78) U/L Alkaline Phosphatase (46-116) U/L Total Protein (6.4-8.2) g/dL Albumin (3.4-5.0) g/dL Globulin (2.3-3.5) g/dL Albumin/Globulin Ratio (1.2-2.2) Amylase (25-115) U/L Lipase (73-393) U/L Urine Color Urine Appearance Urine pH (4.5-8.0) Ur Specific [place] (1.008-1.030) Urine Protein (NEGATIVE) mg/dL Urine Glucose (UA) (NEGATIVE) mg/dL Urine Ketones (NEGATIVE) mg/dL Urine Occult Blood (NEGATIVE) Urine Nitrite (NEGAITVE) Urine Bilirubin (NEGATIVE) Urine Urobilinogen (NORMAL) mg/dL Ur Leukocyte Esterase (NEGATIVE) Urine RBC (0-5) Urine WBC (0-5) Ur Epithelial Cells Amorphous Sediment Urine Bacteria Urine Mucus Blood Type O POSITIVE Gel Antibody Screen Negative Crossmatch See Detail Med Orders - Current: Current Medications Acetaminophen (Tylenol) 650 mg PO Q4H PRN PRN Reason: Pain (Mild 1-3)/fever Albuterol (Proventil Neb Soln) 2.5 mg NEB Q4H PRN PRN Reason: Shortness Of Breath/wheezing Amlodipine Besylate (Norvasc) 10 mg PO DAILY [facility] Last Admin: 05/08/18 14:19 Dose: Not Given Docusate Sodium (Colace) 100 mg PO BID PRN PRN Reason: Constipation Glipizide (Glucotrol Xl) 10 mg PO BID [facility] Last Admin: 05/08/18 14:19 Dose: Not Given Hydrochlorothiazide (Hydrochlorothiazide) 25 mg PO DAILY [facility] Last Admin: 05/08/18 14:19 Dose: Not Given Sodium Chloride (Normal Saline) 1,000 mls @ 125 mls/hr IV ASDIRECTED [facility] Last Admin: 05/08/18 12:42 Dose: 125 mls/hr Insulin Glargine (Lantus Solostar) 25 units SUBCUT BEDTIME [facility] Last Admin: 05/08/18 01:15 Dose: 25 units Insulin Human Lispro (Humalog) 0 unit SUBCUT QIDACANDBED [facility]; Protocol Last Admin: 05/08/18 14:18 Dose: Not Given Lorazepam (Ativan) 1 mg IV Q6H PRN PRN Reason: Nausea/Vomiting Magnesium Oxide (Magnesium Oxide) 400 mg PO BID [facility] Last Admin: 05/08/18 14:19 Dose: Not Given Morphine Sulfate (Morphine) 2 mg IVPUSH Q2H PRN PRN Reason: Pain (severe 7-10) Calcitriol [ (Calcitriol] 0.25mcg) 0.25 mcg PO DAILY [facility] Ferrous Gluconate (972mg) 972 mg PO DAILY [facility] Ondansetron HCl (Zofran Odt) 4 mg PO Q6H PRN PRN Reason: Nausea able to take PO Oxycodone HCl (Oxycodone) 5 mg PO Q4H PRN PRN Reason: Pain (moderate 4-6) Discontinued Medications Sodium Chloride (Normal Saline) 500 mls @ 1,000 mls/hr IV .BOLUS ONE Stop: 05/07/18 20:21 Last Admin: 05/07/18 20:49 Dose: 1,000 mls/hr Sodium Chloride (Normal Saline) 500 mls @ 1,000 mls/hr IV .BOLUS ONE Stop: 05/07/18 21:14 Last Admin: 05/07/18 21:18 Dose: 1,000 mls/hr Sodium Chloride (Normal Saline) 1,000 mls @ 999 mls/hr IV ASDIRECTED [facility] Stop: 05/08/18 13:46 Insulin Glargine (Lantus Solostar) 25 units SUBCUT BEDTIME [facility] Last Admin: 05/08/18 06:40 Dose: Not Given Lisinopril (Prinivil) 5 mg PO BID [facility] Last Admin: 05/08/18 01:14 Dose: 5 mg Sodium Polystyrene Sulfonate (Kayexalate) 30 gm PO ONETIME ONE Stop: 05/07/18 19:53 Last Admin: 05/07/18 20:51 Dose: 30 gm Sodium Polystyrene Sulfonate (Kayexalate) 30 gm PO ONETIME ONE Stop: 05/08/18 00:04 Last Admin: 05/08/18 01:14 Dose: 30 gm Sodium Polystyrene Sulfonate (Kayexalate) 45 gm PO NOW ONE Stop: 05/08/18 14:01 Last Admin: 05/08/18 13:54 Dose: 45 gm - Exam Quality Assessment: Denies: Supplemental Oxygen General: Reports: Alert, Oriented, Cooperative, No Acute Distress Lungs: Reports: Normal Respiratory Effort Cardiovascular: Reports: Regular Rate GI/Abdominal Exam: Soft, No Distention Extremities: No Pedal Edema Psy/Mental Status: Reports: Alert, Normal Affect
== END 2018-05-08 15:20 | disposition home or self-care (01) ==
LOC: JP.ED 19:04 → JP.MS 23:04
PROVIDERS: ADMIT Internal Medicine; ATTEND Internal Medicine
DX: E87.5 Hyperkalemia (principal); E11.22 Type 2 diabetes mellitus with diabetic chronic kidney disease; I12.9 Hypertensive chronic kidney disease with stage 1 through stage 4 chronic kidney disease, or unspecified chronic kidney disease; N18.4 Chronic kidney disease, stage 4 (severe); E11.649 Type 2 diabetes mellitus with hypoglycemia without coma; Z79.82 Long term (current) use of aspirin; Z79.4 Long term (current) use of insulin; Z79.899 Other long term (current) drug therapy
CPT/HCPCS: 36415; 36430; 80048; 80053; 81001; 82150; 82962; 83690; 83735; 84132; 85025; 86850; 86900; 86901; 86920; 86922; 93005; 96360; 96361; 99284; A9270; G0378; J1815; J7030; J7040; P9016; 93010